=== PATIENT | female | born 1950 ===

== ENCOUNTER 2022-05-25 09:25 | Day surgery (SDC) | payer MEDICARE ==
[~2022-05-25] VITALS: Ht 165.1 cm; Wt 86.0 kg
[~2022-05-25 09:25] MED LIST: AMLO5 PO; AMOCLA500 PO; ASPI81CH; ASPI81CH PO; ATEN50 PO; ATOR40TA PO; FLAX PO; LISI10 PO; LOSA50 PO; METO25ER PO; MULTI VIT PO; ZOLP10 PO; [UNRECOGNIZED DRUG - OTHER] PO; [UNRECOGNIZED DRUG - REMARK] PO
--- NOTE | 2022-05-25 18:31 | NUR ---
ADMISSION/SHIFT SUMMARY: PT ADMITTED TO PCU FOR EXTENDED RECOVERY F/PACEMAKER PLACEMENT IN [facility]. PT ARRIVES APPROX 1540 W/FAMILY AT BEDSIDE. PT AND FAMILY ORIENTED TO UNIT AND ROOM. PT IS A&Ox4, RESP EVEN AND UNLABORED, O2 SATS >93% ON RA. PRESSURE DRESSING TO L CHEST, C/D/I. PT REPORTS PAIN TO L CHEST, ICE PACK AND SLING APPLIED, PT ALSO MEDICATED W/PRN MEDICATION IN EMAR. PT ABLE TO SWALLOW PILLS WHOLE W/OUT DIFFICULTY. AT THIS TIME, PT RESTING QUIETLY IN BED W/TV AND CALL LIGHT IN REACH. WILL CONTINUE TO MONITOR AND TREAT ACCORDINGLY UNTIL CHANGE OF SHIFT.
--- NOTE | 2022-05-26 05:16 | NUR ---
Assumed care of pt at 1900. A/Ox4, cooperative with care, calls appropriately. Paced rhythm on tele 60's. Denies CP/pressure. LCW pain relieved with tylenol and ice. LCW with small amounts of serosanguineous drainage, unchanged this shift. Will report to angelica ANDERSON.
[2022-05-26] MEDS ORDERED: CEPH500 PO (10:53)
[2022-05-26] MEDS ORDERED: METO25ER PO (10:55)
== END 2022-05-26 12:00 | disposition home or self-care (01) ==
LOC: MHTC 09:25 → PCU 15:06 → MHTC 23:07 → PCU 23:35 → MHTC 05-26 12:00
DX: I49.5 Sick sinus syndrome (principal); I47.1 Supraventricular tachycardia; I10 Essential (primary) hypertension; E78.5 Hyperlipidemia, unspecified; F41.9 Anxiety disorder, unspecified
CPT/HCPCS: 33208; 33228; 71045; 71046; 76937; 99152; 99153; A9270; C1781; C1785; C1894; C1898; J0690; J1644; J2250; J3010; J7030; J7040; Q9967

== ENCOUNTER 2023-06-24 22:53 | Emergency (ER) | payer MEDICARE ==
[~2023-06-24] VITALS: Ht 165.1 cm; Wt 77.1 kg
[~2023-06-24 22:53] MED LIST changes: +CEPH500 PO; +TOPROL XL50 MG PO
[2023-06-24 23:57] LABS: BASOPHILS ABSOLUTE AUTO 0.04 K/mm3 (0.00-0.23); BASOPHILS PERCENT AUTO 1 % (0-2); EOSINOPHILS ABSOLUTE AUTO 0.12 K/mm3 (0.00-0.68); EOSINOPHILS PERCENT AUTO 2 % (0-6); Hematocrit 36.9 % (33.0-51.0); Hemoglobin 13.2 g/dL (11.5-16.0); IMMATURE GRAN ABSOLUTE AUTO 0.04 K/mm3 (0.00-0.10); IMMATURE GRAN PERCENT AUTO 1 % (0-1); LYMPHOCYTES ABSOLUTE AUTO 1.69 K/mm3 (0.84-5.20); LYMPHOCYTES PERCENT AUTO 25 % (21-46); MONOCYTES ABSOLUTE AUTO 0.52 K/mm3 (0.16-1.47); MONOCYTES PERCENT AUTO 8 % (4-13); Mean Corpuscular HGB 32.8 pg (26.0-34.0); Mean Corpuscular HGB Conc 35.8 g/dL (31.5-36.5); Mean Corpuscular Volume 92 fL (80-100); NEUTROPHILS ABSOLUTE AUTO 4.44 K/mm3 (1.96-9.15); NEUTROPHILS PERCENT AUTO 65 % (41-73); RDW Coefficient Variation 12.2 % (11.7-14.2); Red Blood Cell Count 4.02 M/mm3 (3.80-5.20); White Blood Cell Count 6.85 K/mm3 (4.00-11.30)
[2023-06-25 00:02] LABS: Mean Platelet Volume 8.7 fL (9.1-12.4)
[2023-06-25 00:04] LABS: Albumin, Blood 3.9 g/dL (3.4-5.0); Albumin/Globulin Ratio 1.2 (0.8-1.8); Bilirubin, Total 0.5 mg/dL (0.1-1.0); Creatinine, Blood 0.5 mg/dL (0.40-1.00); Globulin, Blood 3.3 g/dL (2.2-4.0); Potassium, Blood 3.6 mmol/L (3.5-5.5); Total Protein, Blood 7.2 g/dL (6.4-8.2)
[2023-06-25 00:39] LABS: Platelet Count 234 K/mm3 (150-400)
[2023-06-25 01:06] VITALS: BP 101/75
[2023-06-25 02:36] LABS: Free Thyroxine 0.95 ng/dL (0.70-1.60); Thyroid Stimulating Hormone 4.91 uIU/mL (0.360-4.800)
== END 2023-06-25 03:07 | disposition home or self-care (01) ==
LOC: ER 22:53
PROVIDERS: Student in an Organized Health Care Education/Training Program
DX: R00.2 Palpitations (principal); Z79.899 Other long term (current) drug therapy; I10 Essential (primary) hypertension; I48.91 Unspecified atrial fibrillation; Z87.891 Personal history of nicotine dependence
CPT/HCPCS: 36415; 80053; 83735; 84439; 84443; 84484; 85025; 93005; 93010; 99285-25

== ENCOUNTER 2023-10-24 18:23 | Emergency (ER) | payer MEDICARE ==
[~2023-10-24] VITALS: Ht 162.6 cm; Wt 80.7 kg
[2023-10-24 19:18] VITALS: BP 172/86
[2023-10-24] MEDS ORDERED: Oxymetazoline 0.05% Nasal Relief Spray 15mL BTL ONE (19:25)
== END 2023-10-24 19:35 | disposition home or self-care (01) ==
LOC: ER 18:23
DX: R04.0 Epistaxis (principal); I10 Essential (primary) hypertension; I48.91 Unspecified atrial fibrillation; Z79.899 Other long term (current) drug therapy; Z79.01 Long term (current) use of anticoagulants; Z95.0 Presence of cardiac pacemaker; Z87.891 Personal history of nicotine dependence
CPT/HCPCS: A9270

== ENCOUNTER 2024-03-15 08:38 | Emergency (ER) | payer MEDICARE ==
[~2024-03-15] VITALS: Ht 160 cm; Wt 81.7 kg
[2024-03-15] MEDS ORDERED: XARELTO20 M1 PO (09:09)
[2024-03-15 09:26] LABS: BASOPHILS ABSOLUTE AUTO 0.03 K/mm3 (0.00-0.23); BASOPHILS PERCENT AUTO 0 % (0-2); EOSINOPHILS PERCENT AUTO 2 % (0-6); Hematocrit 39.8 % (33.0-51.0); Hemoglobin 13.8 g/dL (11.5-16.0); IMMATURE GRAN ABSOLUTE AUTO 0.02 K/mm3 (0.00-0.10); IMMATURE GRAN PERCENT AUTO 0 % (0-1); LYMPHOCYTES ABSOLUTE AUTO 1.55 K/mm3 (0.84-5.20); LYMPHOCYTES PERCENT AUTO 23 % (21-46); MONOCYTES ABSOLUTE AUTO 0.43 K/mm3 (0.16-1.47); MONOCYTES PERCENT AUTO 6 % (4-13); Mean Corpuscular HGB 33.2 pg (26.0-34.0); Mean Corpuscular HGB Conc 34.7 g/dL (31.5-36.5); Mean Corpuscular Volume 96 fL (80-100); Mean Platelet Volume 8.8 fL (9.1-12.4); NEUTROPHILS ABSOLUTE AUTO 4.58 K/mm3 (1.96-9.15); NEUTROPHILS PERCENT AUTO 68 % (41-73); Platelet Count 217 K/mm3 (150-400); RDW Coefficient Variation 12.4 % (11.7-14.2); RDW Standard Deviation 43.6 fL (35.1-46.3); Red Blood Cell Count 4.16 M/mm3 (3.80-5.20); White Blood Cell Count 6.71 K/mm3 (4.00-11.30)
[2024-03-15 09:35] LABS: Albumin, Blood 3.9 g/dL (3.4-5.0); Bilirubin, Total 0.9 mg/dL (0.1-1.0); Bun/Creatinine Ratio 11.1 (12.0-20.0); Calcium, Blood 8.8 mg/dL (8.5-10.1); Creatinine, Blood 0.54 mg/dL (0.40-1.00); Globulin, Blood 3.8 g/dL (2.2-4.0); Potassium, Blood 4.5 mmol/L (3.5-5.5); Total Protein, Blood 7.7 g/dL (6.4-8.2)
[2024-03-15 10:31] VITALS: BP 138/81
== END 2024-03-15 10:30 | disposition home or self-care (01) ==
LOC: ER 08:38
PROVIDERS: Emergency Medicine
DX: I48.0 Paroxysmal atrial fibrillation (principal); I10 Essential (primary) hypertension; Z87.891 Personal history of nicotine dependence; Z79.899 Other long term (current) drug therapy
CPT/HCPCS: 36415; 80053; 84484; 85025; 93005; 93010; 99285-25

== ENCOUNTER → 2024-11-14 | Outpatient (CLI) | payer MEDICARE ==
[~2024-11-14] MED LIST changes: +XARELTO20 M1 PO
[2024-11-15 12:24] LABS: Stool Occult Bld Immuno 1 Positive (NEGATIVE)
== END ==
LOC: LAB SHORT 09:00 → LAB 09:00
PROVIDERS: Internal Medicine
DX: Z12.11 Encounter for screening for malignant neoplasm of colon (principal)
CPT/HCPCS: 82274